=== PATIENT | female | born 1995 | race Caucasian/White ===

== ENCOUNTER 2018-08-29 09:40 | Emergency (ER) | payer OTHER ==
[~2018-08-29] VITALS: Ht 157.5 cm; Wt 49.9 kg
[2018-08-29 09:40] VITALS: BP 129/72
[2018-08-29] MEDS ORDERED: METHADOSE10 MG PO (09:43)
[2018-08-29 10:22] LABS: URINE BILIRUBIN NEGATIVE (Negative); URINE BLOOD NEGATIVE (Negative); URINE CLARITY CLEAR; URINE COLOR YELLOW; URINE GLUCOSE-RANDOM* NEGATIVE (Negative); URINE KETONES NEGATIVE (Negative); URINE LEUKOCYTES-REFLEX NEGATIVE (Negative); URINE NITRITE-REFLEX NEGATIVE (Negative); URINE PROTEIN (DIPSTICK) NEGATIVE (Negative); URINE UROBILINOGEN 0.2 E.U./dl (0.2-1.0)
== END 2018-08-29 11:55 | disposition home or self-care (01) ==
LOC: ER 09:40
PROVIDERS: Emergency Medicine
DX: N89.8 Other specified noninflammatory disorders of vagina (principal); N73.9 Female pelvic inflammatory disease, unspecified; Z88.1 Allergy status to other antibiotic agents; Z88.0 Allergy status to penicillin